=== PATIENT | female | born 1995 | race Hispanic/Latino ===

== ENCOUNTER 2018-10-12 09:16 | Inpatient (IN) | payer BC, OTHER ==
[2018-10-12] MEDS ORDERED: HYDROcodone/Acetaminophen 5/325 mg Tablet PO PRN ×2 (09:31)
[2018-10-12] MEDS ORDERED: Ibuprofen 800 MG TAB PO PRN (09:31)
[2018-10-12] MEDS ORDERED: Butorphanol Tartrate 1 MG/ML VIAL SLOW IVP PRN (09:31)
[2018-10-12] MEDS ORDERED: Acetaminophen 500 MG TAB PO PRN (09:31)
[2018-10-12] MEDS ORDERED: Ondansetron PF 4 MG/2 ML Vial IVP PRN ×3 (09:31→17:22)
[2018-10-12] MEDS ORDERED: Diphenoxylate HCl/Atropine Tablet PO PRN ×2 (09:31)
[2018-10-12] MEDS ORDERED: Promethazine HCl 25 MG/ML VIAL IM PRN ×2 (09:31→11:18)
[2018-10-12] MEDS ORDERED: Misoprostol 200 MCG TAB PR PRN (09:31)
[2018-10-12] MEDS ORDERED: Docusate 100 MG CAP PO PRN (09:31)
[2018-10-12] MEDS ORDERED: Lidocaine 1% (PF) 30 ML VIAL SC PRN (09:31)
[2018-10-12] MEDS ORDERED: NS / Oxytocin 40 units/1000ml 1,000 ML IV PRN (09:31)
[2018-10-12] MEDS ORDERED: NS w/ Oxytocin 10 units 500 ML IV SCH (09:45)
[2018-10-12] MEDS ORDERED: Penicillin G Potassium 5 MILL.UNITS in Sodium Chloride 0.9% 100 ML IVPB SCH (09:45)
[2018-10-12] MEDS ORDERED: Penicillin G Potassium 5 MILL.UNITS VIAL ONE (10:00)
[2018-10-12] MEDS: Lactated Ringer's 1,000 ML IV SCH ×2 (10:03→11:06)
[2018-10-12 10:14] VITALS: BMI 30.7
[2018-10-12] MEDS ORDERED: Fentanyl 4 mcg/Bup 0.1% Cadd 100 ML ONE (10:23)
[2018-10-12 10:31] LABS: Hemoglobin 13.3 g/dL (12.0-16.0); Mean Corpuscular HGB CONC 34.7 g/dL (32.0-36.0); Mean Corpuscular Hemoglobin 30.9 pg (27.0-31.0); Mean Platelet Volume 9.6 fL (7.4-10.4); Platelet Count 92 thou/uL (130-400); Red Blood Cell (RBC) Count 4.29 mill/uL (4.20-5.40); White Blood Cell (WBC) Count 7.3 thou/uL (4.8-10.8)
[2018-10-12 10:48] LABS: HBSAg Index 0.31 S/CO (0-0.99); Hep B Surf Ag Non-Reactive S/CO (NonReactive)
[2018-10-12 10:49] LABS: Syphilis Antibody Nonreactive (Nonreactive); Syphilis Antibody Index 0.02 S/CO (<1.00 Non-Reactive)
[2018-10-12] MEDS ORDERED: Bupivacaine 0.25% HCL 30 ML VIAL ONE (11:11)
[2018-10-12] MEDS ORDERED: Lactated Ringer's 500 ML IV PRN (11:18)
[2018-10-12] MEDS ORDERED: Acetaminophen 325 MG TAB PO PRN (11:18)
[2018-10-12] MEDS ORDERED: Eucerin (Mineral Oil/Petrolatum,White) 30 gm Jar TOP PRN (11:18)
[2018-10-12] MEDS ORDERED: ePHEDrine/0.9% NaCl/PF SYRINGE 50 mg/10 ml SLOW IVP PRN (11:18)
[2018-10-12] MEDS ORDERED: diphenhydrAMINE 50 MG/ML VIAL IVP PRN (11:18)
[2018-10-12] MEDS ORDERED: Naloxone HCl 0.4 mg/ml Vial IVP PRN ×2 (11:18)
[2018-10-12] MEDS ORDERED: Fentanyl 4 mcg/Bupivacaine 0.1% Cassette 100 ML EPIDURAL SCH (11:30)
[2018-10-12] MEDS ORDERED: Communication Order-Pharmacy FS SCH (11:30)
[2018-10-12] MEDS ORDERED: Penicillin G 2.5 MILL.units 50 ML ONE (14:35)
[2018-10-12] MEDS ORDERED: Acetaminophen/Codeine 30-300mg Tablet PO PRN ×2 (17:22)
[2018-10-12] MEDS ORDERED: Bisacodyl 10 MG SUPP PR PRN (17:22)
[2018-10-12] MEDS ORDERED: Lanolin Ointment 7 GM TUBE TOP PRN (17:22)
[2018-10-12] MEDS ORDERED: Zolpidem Tartrate 5 MG TAB PO PRN (17:22)
[2018-10-12] MEDS ORDERED: diphenhydrAMINE 25 MG CAP PO PRN (17:22)
[2018-10-12] MEDS ORDERED: Adacel (T-DAP) 0.5 ML SYRINGE IM ONE (17:22)
[2018-10-12] MEDS ORDERED: Milk Of Magnesia 30 ML UDCUP PO PRN (17:22)
[2018-10-12] MEDS ORDERED: NS / Oxytocin 40 units/1000ml 1,000 ML IV SCH (17:30)
[2018-10-12] MEDS: Docusate Calcium (SURFAK) 240 MG CAP PO SCH (21:36)
[2018-10-12] MEDS: Ibuprofen 800 MG TAB PO SCH (21:36)
[2018-10-13] MEDS: Ibuprofen 800 MG TAB PO SCH ×2 (06:02→14:14)
[2018-10-13] MEDS ORDERED: Prenatal Vitamin 1 TAB PO SCH (09:00)
[2018-10-13] MEDS: Ferrous Sulfate 325 MG TAB PO SCH ×2 (09:49→18:06)
[2018-10-13] MEDS: Docusate Calcium (SURFAK) 240 MG CAP PO SCH (09:49)
[2018-10-13 17:56] VITALS: BP 116/66; TEMP 97.7
== END 2018-10-13 18:30 | disposition home or self-care (01) | DRG 807 ==
LOC: L&D 09:16 → 3SW 20:07
PROVIDERS: ADMIT Obstetrics & Gynecology; ATTEND Obstetrics & Gynecology
PROC: 10E0XZZ Delivery of Products of Conception, External Approach (ICD-10-PCS; principal; 2018-10-12)
PROC: 10907ZC Drainage of Amniotic Fluid, Therapeutic from Products of Conception, Via Natural or Artificial Opening (ICD-10-PCS; 2018-10-12)
PROC: 3E0234Z Introduction of Serum, Toxoid and Vaccine into Muscle, Percutaneous Approach (ICD-10-PCS; 2018-10-12)
DX: O99.824 Streptococcus B carrier state complicating childbirth (principal); Z37.0 Single live birth; O69.81X0 Labor and delivery complicated by cord around neck, without compression, not applicable or unspecified; Z3A.39 39 weeks gestation of pregnancy; Z23 Encounter for immunization
CPT/HCPCS: 51702; 85027; 86780; 86850; 86900; 86901; 87340; 90715; J2405; J2540; S0020